=== PATIENT | male | born 1960 ===

== ENCOUNTER 2016-11-28 07:05 | Inpatient (IN) | payer OTHER ==
[2016-11-28] VITALS (13 sets, daily range): BP systolic 101–148; BP diastolic 55–88
[~2016-11-28] VITALS: Ht 170.2 cm; Wt 95.3 kg
[~2016-11-28 07:05] MED LIST: TAMSULOSIN HCL0.4 MG ORAL; ceFAZolin sod 1 GM in NS 55 ML IVPB ONE
[2016-11-28] MEDS ORDERED: Sterile Water Irrig 1000ml IRRIG ONE (09:00)
[2016-11-28] MEDS ORDERED: NS Irrig 2000ml IRRIG ONE ×2 (09:00→09:35)
[2016-11-28] MEDS ORDERED: Glycopyrrolate 0.2mg/ml 1ml Vial ONE (09:00)
[2016-11-28] MEDS ORDERED: NS Irrig 1000ml ONE (09:00)
[2016-11-28] MEDS ORDERED: Dexamethasone 4mg/ml vial ONE (09:00)
--- NOTE | 2016-11-28 09:13 | Pre-Procedure Note/Attestation ---
Pre-Procedure Note/Attestation Complete Prior to Procedure Planned Procedure: not applicable Procedure Narrative: TURP Indications for Procedure Pre-Operative Diagnosis: bph Attestation I attest that I discussed the nature of the procedure; its benefits; risks and complications; and alternatives (and the risks and benefits of such alternatives ), prior to the procedure, with the patient (or the patient's legal players club representative). I attest that, if there was a reasonable possibility of needing a blood transfusion, the patient (or the patient's legal players club representative) was given the [facility] standardized written summary, pursuant to the [place] Blood Safety Act ([place] Health and Safety Code # 1645, as amended). I attest that I re-evaluated the patient just prior to the surgery and that there has been no change in the patient's H&P, except as documented below: Jaswinder Fernandez MD Nov 28, 2016 09:13
--- NOTE | 2016-11-28 09:16 | Brief Operative Note ---
Immediate Post Operative Note Operative Note Pre-op Diagnosis: bph Procedure: TURP Post-op Diagnosis: same as pre-op Surgeon: Kevan Fernandez Anesthesia: general Specimen: yes Complications: none Estimated Blood Loss: minimal Implant(s) used?: No Jaswinder Fernandez MD Nov 28, 2016 09:16
[2016-11-28] MEDS ORDERED: NS Irrig 4000ml IRRIG ONE (09:35)
[2016-11-28] MEDS ORDERED: NS Irrig 1000ml IRRIG ONE (09:35)
--- NOTE | 2016-11-28 10:11 | Anethesia Preoperative Eval ---
Anesthesia Pre-op PMH/ROS General Date of Evaluation: Nov 28, 2016 Time of Evaluation: 08:55 Anesthesiologist: Smith ASA Score: ASA 2 Mallampati Score Class I : Soft palate, uvula, fauces, pillars visible Class II: Soft palate, uvula, fauces visible Class III: Soft palate, base of uvula visible Class IV: Only hard plate visible Mallampati Classification: Class II Surgeon: Jim Diagnosis: BPH Surgical Procedure: TURP Anesthesia History: none Allergies: Coded Allergies: No Known Allergies (Unverified , 11/27/16) Medications: see eMAR Past Medical History Cardiovascular: Denies: CAD, HTN, PR, arrhythmia, other, valve dz Pulmonary: Denies: COPD, CHAPO, asthma, other Gastrointestinal/Genitourinary: Denies: CRI, ESRD, GERD, other Neurologic/Psychiatric: Denies: CVA, TIA, dementia, depression/anxiety, other Endocrine: Denies: DM, hypothyroidism, other, steroids HEENT: Denies: [place] (L), [place] (R), cataract (L), cataract (R), glaucoma, other Hematology/Immune: Denies: DVT, anemia, bleeding disorder, other Musculoskeletal/Integumentary: Denies: DDD, DJD, OA, RA, edema, other Other: obesity Anesthesia Pre-op Phys. Exam Physician Exam Last Vital Signs Date Time Temp Pulse Resp B/P Pulse Ox O2 Delivery O2 Flow Rate FiO2 11/28/16 07:48 98.7 64 18 140/88 98 Room Air Constitutional: NAD Neurologic: CN 2-12 intact Cardiovascular: RRR Respiratory: CTA Gastrointestinal: S/NT/ND Airway Exam Mallampati Score: Class II DANN LEYVA M.D. Nov 28, 2016 10:11
--- NOTE | 2016-11-28 10:30 | Immediate Post-Op Evaluation ---
Immediate Post-Op Evalulation Immediate Post-Op Evalulation Procedure: TURP Date of Evaluation: Nov 28, 2016 Time of Evaluation: 10:29 IV Fluids: 800 Blood Products: 0 Estimated Blood Loss: 0 Urinary Output: 0 Blood Pressure Systolic: 139 Blood Pressure Diastolic: 75 Pulse Rate: 60 Respiratory Rate: 20 O2 Sat by Pulse Oximetry: 98 Temperature (Fahrenheit): 98 Pain Score (1-10): 2 Nausea: No Vomiting: No Complications na Patient Status: awake Hydration Status: adequate Drug: Ancef 2g Given Within 1 Hr of Incision: Yes Time Given: 09:15 DANN LEYVA M.D. Nov 28, 2016 10:30
[2016-11-28] MEDS ORDERED: Hydromorphone 0.5mg/0.5ml inj ONE (10:58)
[2016-11-28] MEDS ORDERED: Hydromorphone 0.5mg/0.5ml inj IVP PRN ×2 (11:02→12:45)
[2016-11-28] MEDS ORDERED: Ketorolac 30mg Inj IV PRN (12:45)
[2016-11-28] MEDS ORDERED: fentaNYL 100 mcg/2 mL IV PRN (12:45)
[2016-11-28] MEDS ORDERED: Norco 5mg/325mg tab ORAL PRN (12:45)
[2016-11-28 12:49] LABS: MEAN CORPUSCULAR HEMOGLOBIN 28.5 PG (27.0-31.0); MEAN CORPUSCULAR HGB CONC 32.1 G/DL (32.0-36.0); MEAN CORPUSCULAR VOLUME 89 FL (80-99); MEAN PLATELET VOLUME 5.9 FL (6.5-10.1); PLATELET COUNT 292 K/UL (150-450); RED BLOOD COUNT 5.13 M/UL (4.70-6.10); RED CELL DISTRIBUTION WIDTH 12.9 % (11.6-14.8); WHITE BLOOD COUNT 10.8 K/UL (4.8-10.8)
[2016-11-28] MEDS ORDERED: HYDROmorphone 1mg/ml Carpuject IVP PRN (13:00)
[2016-11-28 13:03] LABS: ANION GAP 14 (5-15); CALCIUM 8.7 mg/dL (8.6-10.2); CARBON DIOXIDE 27 mEQ/L (20-30); CHLORIDE 99 mEQ/L (98-107); CREATININE 0.8 mg/dL (0.7-1.2); GLOMERULAR FILTRATION RATE > 60 mL/min (>60); HEMOLYSIS 6; POTASSIUM 4.2 mEQ/L (3.4-4.9); SODIUM 140 mEQ/L (135-145)
[2016-11-28 13:22] LABS: BAND NEUTROPHILS % (MANUAL) 0 % (0-8); BASOPHILS % (MANUAL) 0 % (0-2); EOSINOPHILS % (MANUAL) 0 % (0-3); LYMPHOCYTES % (MANUAL) 7 % (20-45); NEUTROPHILS % (MANUAL) 92 % (45-75); PLATELET ESTIMATE ADEQUATE; PLATELET MORPHOLOGY NORMAL; TOTAL CELLS COUNTED 100
[2016-11-28] MEDS: D5 1/2NS w/KCl 20mEq 1,000 ML IV SCH (13:30)
[2016-11-28] MEDS: ceFAZolin sod 2 GM in NS 110 ML IV SCH (17:32)
[2016-11-28] MEDS: Docusate 100mg tablet ORAL SCH (17:32)
--- NOTE | 2016-11-28 19:53 | History & Physical ---
History and Physical History & Physicial Dictated for Int Med-Dr Anna no. [id number]. RYAN GALINDO Nov 28, 2016 19:53
--- NOTE | 2016-11-28 23:48 | History and Physical Report ---
DATE OF ADMISSION: 11/28/2016 CHIEF COMPLAINT: The patient is a 56-year-old male, presents with chief complaint of transurethral resection of the prostate. HISTORY OF PRESENT ILLNESS: The patient was diagnosed with benign prostatic hypertrophy approximately 10 years ago. The patient currently takes medication for benign prostatic hypertrophy. The patient's urinary symptoms became increasingly more obstructive. The patient has been evaluated by Dr. Fernandez. The patient is scheduled for transurethral resection of prostate on 11/28/2016. The patient presents today for transurethral resection of prostate. PAST MEDICAL HISTORY: Significant for 1. Benign prostatic hypertrophy for 10 years. 2. 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 PAST SURGICAL HISTORY: Significant for right eye surgery x5. MEDICATIONS: Current medications, Flomax 0.4 mg p.o. at bedtime. ALLERGIES: No known drug allergies. 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 The patient denies tobacco or alcohol use. FAMILY HISTORY: Negative for diabetes or coronary artery disease. PHYSICAL EXAMINATION: VITAL SIGNS: Temperature 98.0 degrees, respirations 22, pulse 63, and blood pressure 135/79. GENERAL: The patient is well developed and well nourished, slightly obese male, in no apparent distress. HEENT: Eyes, pupils are equal and responsive to light and accommodation. Extraocular movements are intact. NECK: Supple without lymphadenopathy. CHEST: Lungs are clear auscultation bilaterally without wheezes or rales. CARDIOVASCULAR: Regular rhythm and rate. S1 and S2 normal without murmurs, rubs, or gallops. ABDOMEN: Soft, nontender, and nondistended. Positive bowel sounds. No evidence of hepatosplenomegaly. Currently, no rebound or guarding. EXTREMITIES: No clubbing, cyanosis or edema. RECTAL: Refused. GENITAL: Refused. NEUROLOGIC: Cranial nerves II through XII are grossly intact without focal deficits. Motor strength is 5/5 bilaterally. Deep tendon reflexes are 2+ plantar. LABORATORY AND DIAGNOSTIC DATA: WBC 10.8, hemoglobin 14.6, hematocrit 45.2, and platelets 293,000. Sodium 140, potassium 4.2, chloride 99, CO2 27, BUN 11, creatinine 0.8, and glucose 140. ASSESSMENT: This is a 56-year-old male 1. Benign prostatic hypertrophy. 2. Blindness of the right eye. TREATMENT: 1. Benign prostatic hypertrophy. The patient is scheduled for transurethral resection of prostate today by Dr. Fernandez. We will follow recommendations of Urology. 2. Blindness of the right eye. Carlitos Morillo M.D. DR: BLANCA JOB#: [id number] CC:
[2016-11-29] VITALS: BP 114/59
[2016-11-29] MEDS: D5 1/2NS w/KCl 20mEq 1,000 ML IV SCH (00:11)
[2016-11-29] MEDS: ceFAZolin sod 2 GM in NS 110 ML IV SCH (00:14)
[2016-11-29 04:00] VITALS: BP 111/61
[2016-11-29 07:37] LABS: ANION GAP 14 (5-15); CALCIUM 8.6 mg/dL (8.6-10.2); CARBON DIOXIDE 25 mEQ/L (20-30); CHLORIDE 98 mEQ/L (98-107); CREATININE 0.9 mg/dL (0.7-1.2); GLOMERULAR FILTRATION RATE > 60 mL/min (>60); HEMOLYSIS 12; SODIUM 137 mEQ/L (135-145)
[2016-11-29 08:00] VITALS: BP 117/46
[2016-11-29] MEDS: Docusate 100mg tablet ORAL SCH ×2 (08:35→18:41)
--- NOTE | 2016-11-29 09:48 | 48 Hour Post Anesthesia Eval ---
Post Anesthesia Evaluation Procedure: TURP Date of Evaluation: Nov 29, 2016 Time of Evaluation: 09:47 Blood Pressure Systolic: 114 0: 42 Pulse Rate: 72 Respiratory Rate: 20 Temperature (Fahrenheit): 98.2 O2 Sat by Pulse Oximetry: 100 Airway: patent Nausea: No Vomiting: No Pain Intensity: 2 Hydration Status: adequate Cardiopulmonary Status: stable Mental Status/LOC: patient returned to baseline Follow-up Care/Observations: na Post-Anesthesia Complications: na Follow-up care needed: N/A DANN LEYVA M.D. Nov 29, 2016 09:48
[2016-11-29 12:00] VITALS: BP 98/52
--- NOTE | 2016-11-29 15:01 | Internal Med Progress Note ---
Subjective Physician Name Pankaj Anna Attending Physician Jaswinder Fernandez MD Current Medications Medications (Trade) Dose Ordered Sig/Delilah Route PRN Reason Start Time Stop Time Status Last Admin Dose Admin Acetaminophen (Tylenol) 650 mg Q4H PRN ORAL T>100.5 11/28/16 13:00 12/28/16 12:59 Acetaminophen (Tylenol) 650 mg Q6H PRN ORAL Mild Pain (Pain Scale 1-3) 11/28/16 13:00 12/28/16 12:59 Docusate Sodium (Colace) 100 mg TWICE A DAY ORAL 11/28/16 18:00 12/28/16 17:59 11/29/16 08:35 Hydromorphone HCl (Dilaudid) 1 mg Q3H PRN IVP Moderate Pain (Pain Scale 4-6) 11/28/16 13:00 12/05/16 12:59 11/29/16 11:53 Ondansetron HCl (Zofran) 4 mg Q6H PRN IVP Nausea & Vomiting 11/28/16 13:00 12/28/16 12:59 Allergies: Coded Allergies: No Known Allergies (Unverified , 11/27/16) Subjective awake, responsive, alert, NAD Objective Last Vital Signs Date Time Temp Pulse Resp B/P Pulse Ox O2 Delivery O2 Flow Rate FiO2 11/29/16 12:46 99.3 11/29/16 12:00 51 18 98/52 99 Nasal Cannula 2.0 Laboratory Tests Test 11/29/16 06:15 Sodium Level 137 mEQ/L (135-145) Potassium Level 4.0 mEQ/L (3.4-4.9) Chloride Level 98 mEQ/L (98-107) Carbon Dioxide Level 25 mEQ/L (20-30) Anion Gap 14 (5-15) Blood Urea Nitrogen 13 mg/dL (7-23) Creatinine 0.9 mg/dL (0.7-1.2) Estimat Glomerular Filtration Rate > 60 mL/min (>60) Glucose Level 165 mg/dL (74-106) H Calcium Level 8.6 mg/dL (8.6-10.2) Intake and Output 11/28/16 11/29/16 19:00 07:00 Intake Total 1650 ml 3550 ml Output Total 2500 ml 1700 ml Balance -850 ml 1850 ml Intake Oral 500 ml 50 ml IV Total 1150 ml 3500 ml Output Urine Total 900 ml 600 ml Other 1600 ml 1100 ml # Voids 1 Objective GENERAL: The patient is well developed and well nourished, slightly obese male, in no apparent distress. HEENT: Left Eye: pupils are equal and responsive to light and accommodation. Extraocular movements are intact. Right eye: opacification. NECK: Supple without lymphadenopathy. CHEST: Lungs are clear auscultation bilaterally without wheezes or rales. CARDIOVASCULAR: Regular rhythm and rate. S1 and S2 normal without murmurs. ABDOMEN: Soft, nontender, and nondistended. Positive bowel sounds. : Atkinson Cath with irrigation. EXTREMITIES: No clubbing, cyanosis or edema. NEUROLOGIC: Cranial nerves II through XII are grossly intact without focal deficits. Motor strength is 5/5 bilaterally. Assessment/Plan Assessment/Plan 1. Benign prostatic hypertrophy s/p TURP (11/28/2016). 2. Blindness of the right eye. PLAN: F/U with Dr. Fernandez recommendations HI Bladder irrigation. Lab. HI Home in Pankaj Anna MD Nov 29, 2016 15:01
[2016-11-29 16:00] VITALS: BP 112/50
[2016-11-29 16:07] LABS: ANION GAP 14 (5-15); CALCIUM 8.5 mg/dL (8.6-10.2); CARBON DIOXIDE 26 mEQ/L (20-30); CHLORIDE 97 mEQ/L (98-107); CREATININE 0.9 mg/dL (0.7-1.2); GLOMERULAR FILTRATION RATE > 60 mL/min (>60); HEMOLYSIS 2; POTASSIUM 3.9 mEQ/L (3.4-4.9); SODIUM 137 mEQ/L (135-145)
[2016-11-29 20:00] VITALS: BP 111/71
[2016-11-30] VITALS: BP 113/71
[2016-11-30 04:00] VITALS: BP 126/76
[2016-11-30 06:15] LABS: BASOPHILS % (AUTO) 0.6 % (0.0-2.0); EOSINOPHILS % (AUTO) 1.4 % (0.0-3.0); LYMPHOCYTES % (AUTO) 29.3 % (20.0-45.0); MEAN CORPUSCULAR HEMOGLOBIN 28.8 PG (27.0-31.0); MEAN CORPUSCULAR HGB CONC 32.7 G/DL (32.0-36.0); MEAN CORPUSCULAR VOLUME 88 FL (80-99); MEAN PLATELET VOLUME 6.2 FL (6.5-10.1); MONOCYTES % (AUTO) 7.8 % (1.0-10.0); NEUTROPHILS % (AUTO) 60.8 % (45.0-75.0); PLATELET COUNT 270 K/UL (150-450); RED BLOOD COUNT 4.75 M/UL (4.70-6.10); WHITE BLOOD COUNT 10.2 K/UL (4.8-10.8)
[2016-11-30 06:39] LABS: MAGNESIUM 2.1 mg/dL (1.7-2.5); PHOSPHORUS 3.1 mg/dL (2.5-4.8)
[2016-11-30 08:00] VITALS: BP 117/68
[2016-11-30] MEDS: Docusate 100mg tablet ORAL SCH (08:38)
[2016-11-30 12:09] VITALS: BP 120/66
--- NOTE | 2016-11-30 14:50 | Internal Med Progress Note ---
Subjective Physician Name WilfridoPankaj goldstein Attending Physician Jaswinder Fernandez MD Current Medications Medications (Trade) Dose Ordered Sig/Delilah Route PRN Reason Start Time Stop Time Status Last Admin Dose Admin Acetaminophen (Tylenol) 650 mg Q4H PRN ORAL T>100.5 11/28/16 13:00 12/28/16 12:59 Acetaminophen (Tylenol) 650 mg Q6H PRN ORAL Mild Pain (Pain Scale 1-3) 11/28/16 13:00 12/28/16 12:59 Docusate Sodium (Colace) 100 mg TWICE A DAY ORAL 11/28/16 18:00 12/28/16 17:59 11/30/16 08:38 Hydromorphone HCl (Dilaudid) 1 mg Q3H PRN IVP Moderate Pain (Pain Scale 4-6) 11/28/16 13:00 12/05/16 12:59 11/29/16 11:53 Ondansetron HCl (Zofran) 4 mg Q6H PRN IVP Nausea & Vomiting 11/28/16 13:00 12/28/16 12:59 Allergies: Coded Allergies: No Known Allergies (Unverified , 11/27/16) Subjective awake, responsive, alert, NAD, family at bedside. Objective Last Vital Signs Date Time Temp Pulse Resp B/P Pulse Ox O2 Delivery O2 Flow Rate FiO2 11/30/16 12:09 98.1 63 17 120/66 97 Room Air 11/29/16 20:00 2.0 Laboratory Tests Test 11/29/16 15:40 11/30/16 04:50 Sodium Level 137 mEQ/L (135-145) Potassium Level 3.9 mEQ/L (3.4-4.9) Chloride Level 97 mEQ/L (98-107) L Carbon Dioxide Level 26 mEQ/L (20-30) Anion Gap 14 (5-15) Blood Urea Nitrogen 13 mg/dL (7-23) Creatinine 0.9 mg/dL (0.7-1.2) Estimat Glomerular Filtration Rate > 60 mL/min (>60) Glucose Level 139 mg/dL (74-106) H Calcium Level 8.5 mg/dL (8.6-10.2) L White Blood Count 10.2 K/UL (4.8-10.8) Red Blood Count 4.75 M/UL (4.70-6.10) Hemoglobin 13.7 G/DL (14.2-18.0) L Hematocrit 41.7 % (42.0-52.0) L Mean Corpuscular Volume 88 FL (80-99) Mean Corpuscular Hemoglobin 28.8 PG (27.0-31.0) Mean Corpuscular Hemoglobin Concent 32.7 G/DL (32.0-36.0) Red Cell Distribution Width 13.0 % (11.6-14.8) Platelet Count 270 K/UL (150-450) Mean Platelet Volume 6.2 FL (6.5-10.1) L Neutrophils (%) (Auto) 60.8 % (45.0-75.0) Lymphocytes (%) (Auto) 29.3 % (20.0-45.0) Monocytes (%) (Auto) 7.8 % (1.0-10.0) Eosinophils (%) (Auto) 1.4 % (0.0-3.0) Basophils (%) (Auto) 0.6 % (0.0-2.0) Phosphorus Level 3.1 mg/dL (2.5-4.8) Magnesium Level 2.1 mg/dL (1.7-2.5) Microbiology Date/Time Source Procedure Growth Status 11/28/16 08:45 Nasal Nares MRSA Culture - Final NO METHICILLIN RESISTANT STAPH AUREUS... Complete Intake and Output 11/29/16 11/30/16 19:00 07:00 Intake Total 650 ml 860 ml Output Total 3400 ml 1700 ml Balance -2750 ml -840 ml Intake Oral 650 ml 860 ml Output Urine Total 400 ml 1700 ml Other 3000 ml Objective GENERAL: The patient is well developed and well nourished, slightly obese male, in no apparent distress. HEENT: Left Eye: pupils are equal and responsive to light and accommodation. Extraocular movements are intact. Right eye: opacification. NECK: Supple without lymphadenopathy. CHEST: Lungs are clear auscultation bilaterally without wheezes CARDIOVASCULAR: Regular rhythm and rate. S1 and S2 normal without murmurs. ABDOMEN: Soft, nontender, and nondistended. Positive bowel sounds. : Atkinson Cath with clear yellow urine. EXTREMITIES: No clubbing, cyanosis or edema. NEUROLOGIC: Cranial nerves II through XII are grossly intact without focal deficits. Motor strength is 5/5 bilaterally. Assessment/Plan Assessment/Plan 1. Benign prostatic hypertrophy s/p TURP (11/28/2016). 2. Blindness of the right eye. PLAN: F/U with Dr. Fernandez recommendations DC Home today F/U with Dr. Fernandez on Saturday. Pankaj Anna MD Nov 30, 2016 14:50
[2016-11-30 16:00] VITALS: BP 128/71
--- NOTE | 2016-12-03 07:47 | Discharge Summary ---
Discharge Summary Hospital Course Date of Admission Nov 28, 2016 at 07:05 Date of Discharge Nov 30, 2016 at 16:55 Admitting Diagnosis BPH Reason for Hospitalization: elective surgery TURP HPI Janes Fu , 56 year old male, was admitted on Nov 28, 2016 at 07:05 for BPH and elective surgery TURP Consultations dr Anna IM Procedures s/p TURP 11/28/16 dr Fernandez Hospital Course course of recovery uneventful pain controlled voiding freely, urine clear able to tolerate diet ambulatory cleared for dc by surgeon and IM doctor fup on Saturday with surgeon DISCHARGE DIAGNOSES BPH s/p TURP 11/28/16 R eye blindness Discharge Medications Continued Medications: Tamsulosin Hcl (Tamsulosin Hcl*) 0.4 Mg Cap.er.24h 0.4 MG ORAL BEDTIME, CAP Discharge Discharge Disposition Patient was discharged to Home () Discharge Diagnoses: Discharge Instructions Discharge Instructions Special Instructions I have been assigned to complete a D/C Summary on this account. I was not involved in the patient management Jade Mendoza NP ([place]) Dec 03, 2016 07:47
--- NOTE | 2016-12-06 21:48 | Operative Note - Dictated ---
DATE OF OPERATION: 11/28/2016 PREOPERATIVE DIAGNOSIS: Benign prostatic hypertrophy with urinary retention. POSTOPERATIVE DIAGNOSIS: Benign prostatic hypertrophy with urinary retention. OPERATION: Transurethral resection of the prostate. OPERATIVE SURGEON: Jaswinder Fernandez M.D. ANESTHESIA: General. FINDINGS: Obstructed and enlarged prostate. INDICATION FOR SURGERY: The patient failed medical therapy for BPH. Treatment options were explained to him in great length including all potential complications which he signed a consent. He was brought to the operating room and placed in a lithotomy position and prepped and draped in a standard fashion. Under general anesthesia, resectoscope was introduced into the bladder and prostate was resected in all four quadrants, all the way to the verumontanum, which was carefully preserved. Chips were evacuated for pathological examination and fulguration of the prostate was done. The remnants of the prostate was done using . After that, a Atkinson catheter 24-Mexican was placed and left indwelling. Bladder was emptied from all the chips prior to that and CBI started. The patient tolerated the procedure well. Sponge count and instrument count was correct. Jaswinder Fernandez M.D. DR: Thi JOB#: [id number] CC:
== END 2016-11-30 16:55 | disposition home or self-care (01) | DRG 713 ==
LOC: SDSOVERFLO 07:05 → 3E 12:13
PROC: 0VT08ZZ Resection of Prostate, Via Natural or Artificial Opening Endoscopic (ICD-10-PCS; principal; 2016-11-28 09:00)
DX: N40.1 Benign prostatic hyperplasia with lower urinary tract symptoms (principal); N13.8 Other obstructive and reflux uropathy; H54.41 Blindness, right eye, normal vision left eye; R33.8 Other retention of urine
CPT/HCPCS: 36415; 80048; 83735; 84100; 85007; 85025; 86850; 86900; 86901; 87081; 94003; 94150; J2405